=== PATIENT | female | born 1970 | race Caucasian/White ===

== ENCOUNTER 2017-01-16 14:13 | Emergency (ER) | payer OTHER ==
[~2017-01-16] VITALS: Ht 170.2 cm; Wt 60.0 kg
[~2017-01-16 14:13] MED LIST: GABA300C10 PO; HYDR-3240 PO; ZOLP5TAB6 PO
[2017-01-16] MEDS ORDERED: ONDANSETRON 2MG/ML, 2ML ONE (14:32)
[2017-01-16] MEDS ORDERED: HYDROmorphone 1 MG/ML, 1ML ONE ×4 (14:32→18:16)
[2017-01-16] MEDS: HYDROmorphone 1 MG/ML, 1ML IVPush PRN ×4 (14:49→18:15)
[2017-01-16 14:54] LABS: HEMATOCRIT 40.4 % (34.6-47.8); HEMOGLOBIN 13.4 g/dL (11.7-16.4); WHITE BLOOD COUNT 7.8 x10^3/uL (3.4-10)
[2017-01-16] MEDS ORDERED: ONDANSETRON 2MG/ML, 2ML IVPush ONE (15:00)
[2017-01-16] MEDS ORDERED: SODIUM CHLORIDE 0.9% 1,000ML IVBOLUS ONE (15:00)
[2017-01-16] MEDS ORDERED: PLEASE ENTER HEIGHT AND WEIGHT MC SCH (15:00)
[2017-01-16 15:41] LABS: PATH.CAST-FLAG NOT PRESENT; SPERM-FLAG NOT PRESENT; SRC-FLAG NOT PRESENT; XTAL-FLAG NOT PRESENT; YLC-FLAG NOT PRESENT
[2017-01-16 16:37] LABS: BLOOD UREA NITROGEN 15 mg/dL (7-18)
[2017-01-16 17:54] VITALS: BP 106/64
[2017-01-16] MEDS ORDERED: HYDROmorphone 1 MG/ML, 1ML IVPush PRN (18:00)
[2017-01-16] MEDS ORDERED: OMNIPAQUE 350 MG/ML, 100ML BOTTLE ONE (18:14)
== END 2017-01-16 18:24 | disposition home or self-care (01) ==
LOC: ED 16:32
DX: N30.01 Acute cystitis with hematuria (principal)
CPT/HCPCS: 36415; 74177; 76770; 76830; 80048; 81001; 82040; 84703; 85025; 87086; 96361; 96374; 96375; 96376; 99285; J1170; J2405; J7030; Q9967